=== PATIENT | male | born 1970 | race Caucasian/White ===

== ENCOUNTER 2022-04-22 12:04 | Inpatient (IN) | payer BC ==
[~2022-04-22] VITALS: Ht 180.3 cm; Wt 122.9 kg
[2022-04-22 12:05] VITALS: BP_SYST 181
[2022-04-22] MEDS ORDERED: dilTIAZem HCL IVP 5 MG/ML VIAL IVP ONE (12:30)
[2022-04-22] MEDS ORDERED: DILTIAZEM HCL 60 MG TABLET PO ONE (12:30)
[2022-04-22 12:40] LABS: BASOPHILS # (AUTO) 0.1 K/uL (0.0-0.2); BASOPHILS % (AUTO) 1.1 % (0.0-2.0); EOSINOPHILS # (AUTO) 0.1 K/uL (0.0-0.4); EOSINOPHILS % (AUTO) 0.6 % (0.0-4.0); HEMATOCRIT 40.4 % (36-54); HEMOGLOBIN 12.6 g/dL (14.0-18.0); LYMPHOCYTES # (AUTO) 1.3 K/uL (1.0-5.5); LYMPHOCYTES % (AUTO) 12.4 % (20.5-51.5); MEAN CORPUSCULAR HEMOGLOBIN 19 pg (27-31); MEAN CORPUSCULAR HGB CONC 31 % (32-36); MEAN CORPUSCULAR VOLUME 61 fL (79.0-98.0); MONOCYTES # (AUTO) 0.5 K/uL (0.0-1.0); MONOCYTES % (AUTO) 5.3 % (1.7-9.3); NEUTROPHILS # (AUTO) 8.3 K/uL (1.8-7.7); NEUTROPHILS % (AUTO) 80.6 % (40.0-70.0); PLATELET COUNT (AUTO) 393 K/uL (130-430); RED CELL DISTRIBUTION WIDTH 19.4 % (9.0-15.0); WHITE BLOOD COUNT (AUTO) 10.3 K/uL (4.8-10.8)
[2022-04-22 12:52] LABS: ANION GAP 9 (5-15); CHLORIDE 106 mmol/L (98-107); CREATININE 1.98 mg/dL (0.55-1.30); GLUCOSE 111 mg/dL (70-99); INR 1.1 (0.80-1.20); POTASSIUM 4.1 mmol/L (3.5-5.1); PROTHROMBIN TIME 11.5 SECS (9.5-12.5); SODIUM SERUM 139 mmol/L (136-145); UREA NITROGEN, BLOOD 40 mg/dL (8-21)
[2022-04-22 12:54] LABS: GFR AFRICAN AMERICAN 46 mL/min (>90)
[2022-04-22 12:59] LABS: ALANINE AMINOTRANSFERASE 58 U/L (12-78); ALBUMIN 2.8 g/dL (3.4-4.8); ASPARTATE AMINOTRANSFERASE 36 U/L (10-37); TOTAL BILIRUBIN 0.7 mg/dL (0.0-1.0)
[2022-04-22 13:29] LABS: CKMB RELATIVE INDEX 1.1 (0.0-2.9); CREATINE KINASE MB 8.2 ng/mL (0-3.6)
[2022-04-22] MEDS ORDERED: METF-518 PO (13:55)
[2022-04-22] MEDS ORDERED: LOSA100T3 PO (13:55)
[2022-04-22] MEDS ORDERED: HYDROcodone/ACETAMIN 5-325 MG TAB (NORCO/ VICODIN) PO PRN (15:00)
[2022-04-22] MEDS ORDERED: LORazepam 2 MG/ML VIAL IVP PRN (15:00)
[2022-04-22] MEDS ORDERED: HYDROcodone/ACETAMIN 10-325 MG TAB PO PRN (15:00)
[2022-04-22] MEDS ORDERED: NALOXONE HCL 0.4 MG/ML AMP (NARCAN) IVP PRN ×2 (15:00)
[2022-04-22] MEDS ORDERED: NACL 0.9% 1,000 ML IV SCH (15:00)
[2022-04-22] MEDS ORDERED: ONDANSETRON HCL 4 MG/2 ML VIAL IVP PRN (15:00)
[2022-04-22] MEDS ORDERED: INSULIN REGULAR, HUMAN 100 UNITS/ML, 10 ML VIAL (humuLIN R) SUBCUT PRN (15:00)
[2022-04-22] MEDS ORDERED: LOSARTAN POTASSIUM 50 MG TABLET (COZAAR) PO ONE (15:00)
[2022-04-22] MEDS ORDERED: ACETAMINOPHEN 325 MG TABLET PO PRN ×2 (15:00)
[2022-04-22] MEDS ORDERED: IPRATROPIUM/ALBUTEROL SULFATE 3 ML AMPUL.NEB (DUONEB) INH ONE (16:45)
[2022-04-22 16:54] VITALS: BP_SYST 138
[2022-04-22] MEDS: dilTIAZem HCL IVP 5 MG/ML VIAL IVP PRN ×2 (18:26→22:26)
[2022-04-22 19:01] LABS: BILIRUBIN,URINE NEGATIVE (NEGATIVE); CLARITY/URINE CLEAR (CLEAR); COLOR,URINE YELLOW (YELLOW); GLUCOSE,URINE NEGATIVE (NEGATIVE); KETONES,URINE NEGATIVE (NEGATIVE); LEUKOCYTE ESTERASE ,URINE NEGATIVE (NEGATIVE); NITRITE, URINE NEGATIVE (NEGATIVE); PROTEIN URINE 2+ (NEGATIVE); UROBILINOGEN,URINE 0.2 (0.2-1.0)
[2022-04-22 19:10] LABS: BLOOD, URINE TRACE (NEGATIVE)
[2022-04-22 19:12] LABS: BACTERIA,URINE None Seen /HPF (None Seen); MUCUS,URINE None Seen /LPF (None Seen); RBC,URINE 0-3 /HPF (0-3); WBC,URINE 0-3 /HPF (0-3)
[2022-04-22] MEDS: IPRATROPIUM/ALBUTEROL SULFATE 3 ML AMPUL.NEB (DUONEB) INH SCH ×2 (20:33→22:30)
[2022-04-22] MEDS: COLCHICINE 0.6 MG TABLET PO SCH (21:33)
[2022-04-22] MEDS: INDOMETHACIN 25 MG CAPSULE(INDOCIN) PO SCH (21:34)
[2022-04-22] MEDS: NORMAL SALINE 5 ML DISP.SYRIN IVF SCH ×2 (21:44)
[2022-04-22 22:00] LABS: URINE SODIUM, RANDOM 20 mmol/L (40-220)
[2022-04-22] MEDS ORDERED: hydrALAZINE HCL 25 MG TABLET PO ONE (23:00)
[2022-04-23 00:40] VITALS: BP_SYST 145
[2022-04-23] MEDS ORDERED: DILTIAZEM HCL IV SCH (01:45)
[2022-04-23] MEDS ORDERED: D5W IV SCH (01:45)
[2022-04-23] MEDS: IPRATROPIUM/ALBUTEROL SULFATE 3 ML AMPUL.NEB (DUONEB) INH SCH ×6 (03:00→23:53)
[2022-04-23] MEDS ORDERED: dilTIAZem HCL IVP 5 MG/ML VIAL ONE (03:13)
[2022-04-23] MEDS ORDERED: FUROSEMIDE 20 MG/2 ML VIAL IVP ONE (06:15)
[2022-04-23] MEDS: NORMAL SALINE 5 ML DISP.SYRIN IVF SCH ×6 (06:31→22:04)
[2022-04-23 07:04] LABS: BASOPHILS # (AUTO) 0.1 K/uL (0.0-0.2); BASOPHILS % (AUTO) 1.2 % (0.0-2.0); EOSINOPHILS # (AUTO) 0.1 K/uL (0.0-0.4); EOSINOPHILS % (AUTO) 0.9 % (0.0-4.0); HEMATOCRIT 37.9 % (36-54); LYMPHOCYTES # (AUTO) 0.8 K/uL (1.0-5.5); MEAN CORPUSCULAR HEMOGLOBIN 19 pg (27-31); MEAN CORPUSCULAR HGB CONC 32 % (32-36); MEAN CORPUSCULAR VOLUME 61 fL (79.0-98.0); MONOCYTES # (AUTO) 0.5 K/uL (0.0-1.0); MONOCYTES % (AUTO) 5.3 % (1.7-9.3); NEUTROPHILS # (AUTO) 7.9 K/uL (1.8-7.7); PLATELET COUNT (AUTO) 364 K/uL (130-430); RED BLOOD CELL COUNT(AUTO) 6.22 MIL/uL (4.2-6.2); RED CELL DISTRIBUTION WIDTH 18.6 % (9.0-15.0); WHITE BLOOD COUNT (AUTO) 9.4 K/uL (4.8-10.8)
[2022-04-23 07:10] LABS: CALCIUM 7.7 mg/dL (8.4-11.0); CREATININE 1.68 mg/dL (0.55-1.30); POTASSIUM 4.1 mmol/L (3.5-5.1)
[2022-04-23 07:36] LABS: NEUTROPHILS % (AUTO) 83.6 % (40.0-70.0)
[2022-04-23 07:38] LABS: ALBUMIN 2.6 g/dL (3.4-4.8); PHOSPHORUS 3.9 mg/dL (2.7-4.5); TOTAL BILIRUBIN 0.5 mg/dL (0.0-1.0)
[2022-04-23 08:00] VITALS: BP_SYST 141
[2022-04-23] MEDS ORDERED: DIGOXIN 0.5 MG/2 ML AMP IVP ONE (08:15)
[2022-04-23 08:49] LABS: FREE T4 (FREE THYROXINE) 1.4 ng/dl (0.8-1.5); THYROID STIMULATING HORMONE 1.62 uIu/mL (0.36-3.74)
[2022-04-23] MEDS: COLCHICINE 0.6 MG TABLET PO SCH ×2 (09:20→22:01)
[2022-04-23] MEDS: LOSARTAN POTASSIUM 50 MG TABLET (COZAAR) PO SCH (09:23)
[2022-04-23] MEDS: INDOMETHACIN 25 MG CAPSULE(INDOCIN) PO SCH ×2 (09:24→10:24)
[2022-04-23 12:00] VITALS: BP_SYST 146
[2022-04-23] MEDS ORDERED: DIGOXIN 0.25 MG TABLET PO ONE (13:15)
[2022-04-23] MEDS ORDERED: IPRATROPIUM/ALBUTEROL SULFATE 3 ML AMPUL.NEB (DUONEB) INH PRN (14:15)
[2022-04-23 14:33] VITALS: BP_SYST 136
[2022-04-23] MEDS: DILTIAZEM HCL 60 MG TABLET PO SCH (19:21)
[2022-04-23 19:24] VITALS: BP_SYST 139
[2022-04-24 00:26] VITALS: BP_SYST 144
[2022-04-24] MEDS: DILTIAZEM HCL 60 MG TABLET PO SCH ×4 (00:52→18:25)
[2022-04-24] MEDS: IPRATROPIUM/ALBUTEROL SULFATE 3 ML AMPUL.NEB (DUONEB) INH SCH ×6 (03:00→23:00)
[2022-04-24] MEDS: NORMAL SALINE 5 ML DISP.SYRIN IVF SCH ×6 (06:19→21:34)
[2022-04-24 06:35] LABS: BASOPHILS # (AUTO) 0.1 K/uL (0.0-0.2); EOSINOPHILS # (AUTO) 0.3 K/uL (0.0-0.4); HEMOGLOBIN 11.6 g/dL (14.0-18.0); LYMPHOCYTES % (AUTO) 11.5 % (20.5-51.5); MEAN CORPUSCULAR HEMOGLOBIN 19 pg (27-31); MEAN CORPUSCULAR HGB CONC 31 % (32-36); MEAN CORPUSCULAR VOLUME 61 fL (79.0-98.0); MONOCYTES # (AUTO) 0.6 K/uL (0.0-1.0); MONOCYTES % (AUTO) 7.8 % (1.7-9.3); NEUTROPHILS # (AUTO) 6.2 K/uL (1.8-7.7); NEUTROPHILS % (AUTO) 75.7 % (40.0-70.0); PLATELET COUNT (AUTO) 319 K/uL (130-430); RED BLOOD CELL COUNT(AUTO) 6.05 MIL/uL (4.2-6.2); WHITE BLOOD COUNT (AUTO) 8.3 K/uL (4.8-10.8)
[2022-04-24 07:41] LABS: ALBUMIN 2.5 g/dL (3.4-4.8); CALCIUM 7.5 mg/dL (8.4-11.0); CREATININE 1.72 mg/dL (0.55-1.30); PHOSPHORUS 4.2 mg/dL (2.7-4.5); POTASSIUM 3.9 mmol/L (3.5-5.1); TOTAL BILIRUBIN 0.3 mg/dL (0.0-1.0)
[2022-04-24 08:00] VITALS: BP_SYST 144
[2022-04-24 08:34] VITALS: BP_SYST 144
[2022-04-24] MEDS: INDOMETHACIN 25 MG CAPSULE(INDOCIN) PO SCH ×2 (09:20→21:26)
[2022-04-24] MEDS: COLCHICINE 0.6 MG TABLET PO SCH ×2 (09:32→21:26)
[2022-04-24] MEDS: LOSARTAN POTASSIUM 50 MG TABLET (COZAAR) PO SCH (09:33)
[2022-04-24] MEDS: METOPROLOL SUCCINATE 25 MG TAB.SR.24H (TOPROL XL) PO SCH (09:33)
[2022-04-24 11:31] VITALS: BP_SYST 148
[2022-04-24] MEDS: FUROSEMIDE 100 MG in D5W 90 ML IV SCH (12:30)
[2022-04-24] MEDS ORDERED: APIXABAN 2.5 MG TABLET PO ONE (12:45)
[2022-04-24 16:11] VITALS: BP_SYST 154
[2022-04-24 20:13] VITALS: BP_SYST 167
[2022-04-24] MEDS: dilTIAZem HCL IVP 5 MG/ML VIAL IVP PRN (20:24)
[2022-04-24] MEDS: APIXABAN 2.5 MG TABLET PO SCH (21:34)
[2022-04-25] VITALS (7 sets, daily range): BP systolic 141–160
[2022-04-25] MEDS: DILTIAZEM HCL 60 MG TABLET PO SCH ×4 (00:28→17:30)
[2022-04-25] MEDS: IPRATROPIUM/ALBUTEROL SULFATE 3 ML AMPUL.NEB (DUONEB) INH SCH ×5 (03:00→20:00)
[2022-04-25] MEDS: NORMAL SALINE 5 ML DISP.SYRIN IVF SCH ×4 (06:03→21:12)
[2022-04-25 06:48] LABS: EOSINOPHILS # (AUTO) 0.5 K/uL (0.0-0.4); EOSINOPHILS % (AUTO) 5.9 % (0.0-4.0); HEMATOCRIT 39.3 % (36-54); HEMOGLOBIN 12.4 g/dL (14.0-18.0); LYMPHOCYTES % (AUTO) 12.5 % (20.5-51.5); MEAN CORPUSCULAR HEMOGLOBIN 19 pg (27-31); MEAN CORPUSCULAR HGB CONC 31 % (32-36); MEAN CORPUSCULAR VOLUME 61 fL (79.0-98.0); MONOCYTES # (AUTO) 0.5 K/uL (0.0-1.0); MONOCYTES % (AUTO) 6.6 % (1.7-9.3); PLATELET COUNT (AUTO) 354 K/uL (130-430); RED BLOOD CELL COUNT(AUTO) 6.44 MIL/uL (4.2-6.2)
[2022-04-25 07:32] LABS: CALCIUM 7.7 mg/dL (8.4-11.0); CREATININE 1.57 mg/dL (0.55-1.30); PHOSPHORUS 3.9 mg/dL (2.7-4.5); POTASSIUM 3.4 mmol/L (3.5-5.1)
[2022-04-25 08:02] LABS: BASOPHILS % (AUTO) 0.5 % (0.0-2.0); NEUTROPHILS % (AUTO) 74.5 % (40.0-70.0)
[2022-04-25] MEDS: LOSARTAN POTASSIUM 50 MG TABLET (COZAAR) PO SCH (08:33)
[2022-04-25] MEDS: COLCHICINE 0.6 MG TABLET PO SCH ×2 (08:33→21:09)
[2022-04-25] MEDS: INDOMETHACIN 25 MG CAPSULE(INDOCIN) PO SCH ×2 (08:34→21:08)
[2022-04-25] MEDS: METOPROLOL SUCCINATE 25 MG TAB.SR.24H (TOPROL XL) PO SCH (08:35)
[2022-04-25] MEDS: APIXABAN 2.5 MG TABLET PO SCH ×2 (08:36→21:10)
[2022-04-25] MEDS: FUROSEMIDE 100 MG in D5W 90 ML IV SCH (12:24)
[2022-04-25] MEDS ORDERED: traZODone HCL 50 MG TABLET (DESYREL) PO PRN (19:00)
[2022-04-26 00:01] VITALS: BP_SYST 135
[2022-04-26] MEDS: DILTIAZEM HCL 60 MG TABLET PO SCH ×4 (00:10→17:18)
[2022-04-26] MEDS: IPRATROPIUM/ALBUTEROL SULFATE 3 ML AMPUL.NEB (DUONEB) INH SCH ×4 (03:10→15:33)
[2022-04-26] MEDS: NORMAL SALINE 5 ML DISP.SYRIN IVF SCH ×2 (05:39→13:07)
[2022-04-26 07:02] LABS: BASOPHILS # (AUTO) 0.1 K/uL (0.0-0.2); BASOPHILS % (AUTO) 1.7 % (0.0-2.0); EOSINOPHILS # (AUTO) 0.4 K/uL (0.0-0.4); HEMATOCRIT 39.1 % (36-54); HEMOGLOBIN 12.1 g/dL (14.0-18.0); LYMPHOCYTES # (AUTO) 0.9 K/uL (1.0-5.5); LYMPHOCYTES % (AUTO) 13.1 % (20.5-51.5); MEAN CORPUSCULAR HEMOGLOBIN 19 pg (27-31); MEAN CORPUSCULAR HGB CONC 31 % (32-36); MEAN CORPUSCULAR VOLUME 61 fL (79.0-98.0); MONOCYTES # (AUTO) 0.5 K/uL (0.0-1.0); MONOCYTES % (AUTO) 7.3 % (1.7-9.3); NEUTROPHILS # (AUTO) 4.7 K/uL (1.8-7.7); NEUTROPHILS % (AUTO) 71.9 % (40.0-70.0); PLATELET COUNT (AUTO) 325 K/uL (130-430); RED BLOOD CELL COUNT(AUTO) 6.41 MIL/uL (4.2-6.2); RED CELL DISTRIBUTION WIDTH 19.2 % (9.0-15.0); WHITE BLOOD COUNT (AUTO) 6.6 K/uL (4.8-10.8)
[2022-04-26 07:20] VITALS: BP_SYST 154
[2022-04-26 07:43] LABS: ANION GAP 9 (5-15); CALCIUM 8.1 mg/dL (8.4-11.0); CHLORIDE 105 mmol/L (98-107); CREATININE 1.57 mg/dL (0.55-1.30); GLUCOSE 96 mg/dL (70-99); PHOSPHORUS 4.5 mg/dL (2.7-4.5); POTASSIUM 3.5 mmol/L (3.5-5.1); SODIUM SERUM 144 mmol/L (136-145); UREA NITROGEN, BLOOD 28 mg/dL (8-21)
[2022-04-26 08:33] LABS: GFR AFRICAN AMERICAN 60 mL/min (>90)
[2022-04-26] MEDS: COLCHICINE 0.6 MG TABLET PO SCH (08:46)
[2022-04-26] MEDS: LOSARTAN POTASSIUM 50 MG TABLET (COZAAR) PO SCH (08:47)
[2022-04-26] MEDS: METOPROLOL SUCCINATE 25 MG TAB.SR.24H (TOPROL XL) PO SCH (08:47)
[2022-04-26] MEDS: APIXABAN 2.5 MG TABLET PO SCH (08:53)
[2022-04-26] MEDS: INDOMETHACIN 25 MG CAPSULE(INDOCIN) PO SCH (09:16)
[2022-04-26 09:29] LABS: ERYTHROCYTE SEDIMENTATION RATE 7 MM/HR (0-15)
[2022-04-26 10:16] LABS: C-REACTIVE PROTEIN QUANT < 0.2 mg/dL (0-0.5)
[2022-04-26] MEDS ORDERED: COLC0.6T67 PO (10:46)
[2022-04-26] MEDS ORDERED: METO-540 PO (10:46)
[2022-04-26] MEDS ORDERED: INDO-11 PO (10:46)
[2022-04-26] MEDS ORDERED: HYDR25TA4 PO (10:46)
[2022-04-26] MEDS ORDERED: APIX2.5T PO (10:46)
[2022-04-26] MEDS ORDERED: DILT60TA3 PO (10:46)
[2022-04-26] MEDS: FUROSEMIDE 100 MG in D5W 90 ML IV SCH (11:49)
[2022-04-26 12:21] VITALS: BP_SYST 151
[2022-04-26 16:11] VITALS: BP_SYST 150
[2022-04-26 20:48] VITALS: BP_SYST 151
== END 2022-04-26 21:19 | disposition home or self-care (01) | DRG 291 ==
LOC: SED 12:04 → STU 13:47
PROVIDERS: ADMIT Preventive Medicine Preventive Medicine/Occupational Environmental Medicine; ATTEND Preventive Medicine Preventive Medicine/Occupational Environmental Medicine
DX: I13.0 Hypertensive heart and chronic kidney disease with heart failure and stage 1 through stage 4 chronic kidney disease, or unspecified chronic kidney disease (principal); I50.23 Acute on chronic systolic (congestive) heart failure; I48.4 Atypical atrial flutter; N17.9 Acute kidney failure, unspecified; E11.21 Type 2 diabetes mellitus with diabetic nephropathy; E83.51 Hypocalcemia; E88.09 Other disorders of plasma-protein metabolism, not elsewhere classified; E83.52 Hypercalcemia; J40 Bronchitis, not specified as acute or chronic; I48.91 Unspecified atrial fibrillation; E78.5 Hyperlipidemia, unspecified; E11.65 Type 2 diabetes mellitus with hyperglycemia; E83.41 Hypermagnesemia; N18.9 Chronic kidney disease, unspecified; E11.22 Type 2 diabetes mellitus with diabetic chronic kidney disease; Z20.822 Contact with and (suspected) exposure to COVID-19
CPT/HCPCS: 36415; 71045; 76770; 80048; 80053; 81000; 82550; 82553; 82570; 82962; 83735; 83880; 84100; 84302; 84439; 84443; 84480; 84484; 85025; 85379; 85610-TC; 85651-TC; 85730-TC; 86140; 93005; 93306; 94640; 94760; 96374; 99285; G0378; J0696; J1160; J1815; J1940; J3490; J7060